=== PATIENT | female | born 1990 | race Caucasian/White ===

== ENCOUNTER 2020-11-03 08:21 | Outpatient (REF) | payer MEDICAID, SELFPAY ==
--- NOTE | ~2020-11-03 | XR_ITS ---
EXAMINATION: XR SHOULDER, RIGHT CLINICAL INFORMATION: Pain COMPARISON: None TECHNIQUE: AP external rotation, Grashey, scapular Y, and axillary views of the right shoulder. FINDINGS: No fracture. Glenohumeral and acromioclavicular alignment is anatomic with normal joint space. No abnormal soft tissue calcifications. XR/XR shoulder RT min 2V IMPRESSION: No acute osseous abnormality.
== END 2020-11-03 08:22 | disposition home or self-care (01) ==
LOC: HO.XRAY 08:21
PROVIDERS: PCP Registered Nurse; Visit Provider Registered Nurse
DX: M25.511 Pain in right shoulder (principal)
CPT/HCPCS: 73030

== ENCOUNTER 2021-01-13 17:56 | Emergency (ER) | payer MEDICAID, SELFPAY ==
[2021-01-13 19:03] VITALS: BP 136/73; PULSE 93; RESP 16; TEMP 36.8; O2SAT 100; BMI 35.3
--- NOTE | 2021-01-13 20:27 | ED_ITS ---
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 She states it was a ceramic dish. The bleeding has stopped, he reports mild pain. She does not know when her last tetanus shot was. Related Data Allergies Allergy/AdvReac Type Severity Reaction Status Date / Time No Known Allergies Allergy Verified 01/13/21 19:06 Review of Systems Review of Systems: Yes all other systems are reviewed and are negative PMFSH Past Medical History Medical History No known health problems Social History Social History Advance Directives: No Advance Directives Information Provided: Yes Patient : No Physical Exam Vital Signs: Vital Signs: Last Vital Signs Temp 98.2 F 01/13/21 19:03 Pulse 93 01/13/21 19:03 Resp 16 01/13/21 19:03 BP 136/73 01/13/21 19:03 Pulse Ox 100 01/13/21 19:03 Body Mass Index 35.3 Const: General: cooperative, healthy appearing, comfortable and no acute distress Nutritional Appearance: average body habitus Orientation/consciousness: patient oriented x3 Limitations: language barrier (Sinhala speaking, educational sign language interpreter used.) HENMT: Head: Yes normal to inspection, Yes No palpable skull fracture present, Yes normocephalic and Yes atraumatic Resp: Effort & Inspection: normal respiratory effort and able to speak in complete sentences Skin: General skin exam: no rashes or lesions noted Neuro: General: patient oriented x3 Extrem: Other: Right forearm, ulnar side, 2 cm linear laceration, superficial. Bleeding controlled, no signs of infection. Procedures Laceration Laceration 1: Site: upper extremity (ulnar side forearm) Side (If applicable): right Size (cm): 2 Description: linear Pre-repair: wound explored and irrigated extensively Skin layer closed with: other (steri strips applied)
[2021-01-13] MEDS: Diphth,Pertus(ACell),Tet Adult 0.5 ML SYRINGE IM (21:03)
== END 2021-01-13 21:14 | disposition home or self-care (01) ==
PROVIDERS: Emergency Provider Internal Medicine
DX: S51.811A Laceration without foreign body of right forearm, initial encounter (principal); W25.XXXA Contact with sharp glass, initial encounter; Y93.E9 Activity, other interior property and clothing maintenance; Y92.010 Kitchen of single-family (private) house as the place of occurrence of the external cause; Y99.9 Unspecified external cause status
CPT/HCPCS: 90471; 90715; 99283; 99284

== ENCOUNTER 2022-10-23 10:33 | Emergency (ER) | payer MEDICAID, SELFPAY ==
[2022-10-23 10:37] VITALS: BP 118/75; PULSE 100; RESP 18; TEMP 36.6; O2SAT 99; BMI 35.1
[2022-10-23 10:53] LABS: IDNOW Serial# 6674DD1D; Strep A Nucleic Acid Positive (Negative)
--- NOTE | 2022-10-23 10:55 | ED.GENADULT ---
HPI - General Adult General Chief complaint: General Medical Stated complaint: Sore throat Time Seen by Provider: 10/23/22 10:54 Source: patient Mode of arrival: ambulatory Limitations: no limitations History of Present Illness HPI narrative: 32 yo Salvadorean-speaking female presents to the ER for evaluation of sore throat & headache for the last 3 days. She states the pain is worse with eating and drinking. She denies any fever or chills. No known sick contacts. She does have 4 children at home and on them have similar symptoms. She reports her throat is red and swollen. No difficulty breathing. She is handling secretions normally MD complaint: Sore throat Onset (ago): day(s) (3) Location: mouth Radiation: neck Severity: severe Severity scale (1-10): 8 Quality: sharp Pain Consistency: constant Relieving factors: none Exacerbating factors: eating Associated symptoms: denies other symptoms Treatments prior to arrival: none Related Data Previous Rx's Medication Instructions Recorded amoxicillin 500 mg tablet 500 mg PO Q12H #20 tabs 10/23/22 ibuprofen 600 mg tablet 600 mg PO Q8H PRN fever or pain 10/23/22 #14 tabs Allergies Allergy/AdvReac Type Severity Reaction Status Date / Time No Known Allergies Allergy Verified 01/13/21 19:06 Review of Systems Review of Systems: Yes all other systems are reviewed and are negative PMFSH Past Medical History Medical History No known health problems Social History Social History Advance Directives: No Advance Directives Information Provided: No Physical Exam ED Vital Signs: Vital Signs - 24 hr 10/23/22 10:37 Temperature 98 F Pulse Rate 100 Respiratory Rate 18 Blood Pressure 118/75 Pulse Oximetry 99 Oxygen Delivery Method Room Air BMI result Body Mass Index 35.1 Appearance: Alert. Oriented X3. No acute distress. HEENT: normal external inspection, no facial swelling. oropharynx w/ moist mucus membranes, posterior pharynx w/ diffuse erythema, tonsillar swelling and exudate. uvula midline. no visible peritonsillar abscess. normal voice and handling secretions normally Neck: normal inspection, trachea midline. +submandibular LAD CVS: Normal heart rate and rhythm. Pulses normal. Respiratory: No respiratory distress. Skin: Skin warm and dry. Normal skin color. Normal skin turgor. No rashes. Extremities: Normal inspection x4, no joint swelling Neuro: Oriented X 3. Grossly normal, nonfocal Medical Decision Making Medical Decision Making [facility] Narrative: 32-year-old female presents to the ER for evaluation 3 days of sore throat and headache. She is nontoxic appearing, no evidence of peritonsillar or retropharyngeal abscess. Her throat is erythematous with tonsillar swelling and exudate. He tested positive for strep throat today. Will treat with amoxicillin. She is tolerating p.o. in triage. Stable for discharge home with oral antibiotics and pain control. Differential Diagnosis Differential Diagnoses: The differential diagnosis associated with the presentation includes Strep throat, COVID, flu, viral pharyngitis, less likely retropharyngeal or peritonsillar abscess. Less likely mononucleosis. Lab Data [facility] Lab Attestation statement: I reviewed the patient's lab results. Strep positive Labs: Lab Results 10/23/22 Range/Units 10:42 S. pyogenes GrpA KEEGAN Positive A (Negative) External Record Review External record reviewed: Prior outpatient labs Prescription Management I considered prescription management with: Antibiotic Critical Care Time Critical Care Time Critical Care Time: No Discharge Plan Discharge Clinical Impression: Acute streptococcal pharyngitis Patient Disposition: Home, Self-Care Instructions: Strep Throat (ED) Additional Instructions: You tested positive for Strep throat. Take the prescribed antibioitic as directed. Complete the entire course and do not miss any doses. Take the prescribed anti-inflammatory pain medication every 6 hours. If you develop new or worsening symptoms call 911 or come back to the ER for further evaluation. Usted homar positivo por faringitis estreptoc?cica. Painter el antibi?paul prescrito seg?n las indicaciones. Complete todo el curso y no se pierda ninguna dosis. Painter el analg?sico antiinflamatorio recetado cada 6 horas. Si desarrolla s?ntomas nuevos o que empeoran, llame al 911 o regrese a la bryan de emergencias para nell evaluaci?n adicional. Prescriptions: New amoxicillin 500 mg tablet 500 mg PO Q12H Qty: 20 0RF ibuprofen 600 mg tablet 600 mg PO Q8H PRN (Reason: fever or pain) Qty: 14 0RF Interventions: ED Discharge Assessment Last Done: 10/23/22 11:01 Discharge Date/Time: 10/23/22 11:10 Print Language: Salvadorean
== END 2022-10-23 11:10 | disposition home or self-care (01) ==
LOC: HO.ED 11:07
PROVIDERS: Emergency Provider Student in an Organized Health Care Education/Training Program
DX: J02.0 Streptococcal pharyngitis (principal); Z79.899 Other long term (current) drug therapy
CPT/HCPCS: 36415; 87651; 99282

== ENCOUNTER 2023-03-16 21:26 | Emergency (ER) | payer MEDICAID, SELFPAY ==
[2023-03-16 21:31] VITALS: BP 117/60; PULSE 103; RESP 18; TEMP 36.9; O2SAT 100; BMI 39.4
[2023-03-16 22:21] LABS: MANUAL DIFF FLAG NO
[2023-03-16 22:22] LABS: Basophils Absolute Auto 0.1 X10*3/uL (0.0-0.2); Basophils Percent Auto 0.7 % (0-2); Eosinophils Absolute Auto 0.1 X10*3/uL (0.0-0.4); Eosinophils Percent Auto 1.4 % (0-4); Hematocrit 36.8 % (37.0-47.0); Hemoglobin 11.5 g/dl (12.0-16.0); Imm Gran Abs Auto 0.03 X10*3/uL (0.00-0.03); Imm Gran Pct Auto 0.3 % (0.0-0.4); Lymphocytes Absolute Auto 2.5 X10*3/uL (1.2-4.9); Lymphocytes Percent Auto 28.9 % (20-40); Mean Corpuscular HGB Conc 31.3 g/dl (31.0-35.0); Mean Corpuscular Hemoglobin 24.6 pg (27.0-33.0); Mean Corpuscular Volume 78.6 fL (80.0-98.0); Mean Platelet Volume 9.2 fL (9.4-12.3); Monocytes Absolute Auto 0.6 X10*3/uL (0.1-1.2); Monocytes Percent Auto 7.1 % (2-11); Neutrophils Absolute Auto 5.3 x10*3/uL (2.0-8.3); Neutrophils Percent Auto 61.6 % (45-73); Platelet Count 377 X10*3/uL (160-400); Red Blood Count 4.68 X10*6/uL (4.20-5.50); Red Cell Distribution Width 13.3 % (11.0-16.0); White Blood Count 8.6 X10*3/uL (4.8-10.8)
[2023-03-16 22:48] LABS: Alanine Aminotransferase 31 U/L (0-31); Albumin Level 3.8 g/dL (3.5-5.0); Alkaline Phosphatase 95 U/L (39-117); Anion Gap 15 (12-20); Aspartate Amino Transferase 24 U/L (5-31); Bilirubin Total 0.2 mg/dL (0.0-1.0); Blood Urea Nitrogen 10 mg/dL (9-16); Calcium 9.2 mg/dL (8.4-10.2); Carbon Dioxide 21 mmol/L (22-29); Chloride 108 mmol/L (96-108); Creatinine Clr Calc Pharmacy 127.9; Estimated Glomerular Filt Rate > 60; Glucose Random 100 mg/dL (60-115); Potassium 4.1 mmol/L (3.3-5.1); Sodium 140 mmol/L (135-145); Total Protein 7.3 g/dL (6.5-8.0)
== END 2023-03-17 01:01 | disposition left against medical advice (07) ==
PROVIDERS: Emergency Provider Emergency Medicine
DX: R10.2 Pelvic and perineal pain (principal); M54.50 Low back pain, unspecified; Z79.899 Other long term (current) drug therapy
CPT/HCPCS: 36415; 80053; 85025; 99281; 99283

== ENCOUNTER 2023-09-11 19:12 | Emergency (ER) | payer MEDICAID, SELFPAY ==
--- NOTE | ~2023-09-11 | XR_ITS ---
EXAMINATION: XR HAND/WRIST, RIGHT CLINICAL INFORMATION: Pain. COMPARISON: None available. TECHNIQUE: PA, lateral, and oblique views of the right hand and wrist, together with a dedicated navicular view. FINDINGS: The bones and soft tissues are normal. No fracture. Alignment is anatomic. There is a neutral ulnar variance. Joint spaces are maintained. No erosions or soft tissue calcifications. XR/XR hand wrist RT IMPRESSION: Normal radiographs of the hand and wrist.
--- NOTE | ~2023-09-11 | XR_ITS ---
EXAMINATION: XR FOREARM, RIGHT CLINICAL INFORMATION: Pain. COMPARISON: None available. TECHNIQUE: AP and lateral views of the right forearm were obtained. FINDINGS: The bones and soft tissues are normal. No fracture. Imaged portions of the elbow and wrist are unremarkable. XR/XR forearm RT 2V IMPRESSION: Normal right forearm.
[2023-09-11 19:42] VITALS: BP 115/62; PULSE 93; RESP 16; TEMP 36.6; O2SAT 98; BMI 34.0
--- NOTE | 2023-09-11 19:43 | ED.UPPEXIN ---
HPI - Extremity Injury (Upper) General Chief Complaint: Extremity Injury, Upper Stated Complaint: right hand and wrist pain Time Seen by Provider: 09/11/23 22:42 Source: patient Mode of arrival: ambulatory Limitations: no limitations History of Present Illness HPI narrative: Patient complaining of right wrist pain lifting heavy box at work no other injuries Related Data Previous Rx's Medication Instructions Recorded amoxicillin 500 mg tablet 500 mg PO Q12H #20 tabs 10/23/22 ibuprofen 600 mg tablet 600 mg PO Q8H PRN fever or pain 10/23/22 #14 tabs ibuprofen 600 mg tablet 600 mg PO Q6H PRN fever or pain 09/11/23 #30 tabs Allergies Allergy/AdvReac Type Severity Reaction Status Date / Time No Known Allergies Allergy Verified 09/11/23 19:42 Review of Systems Review of Systems: Yes all other systems are reviewed and are negative [facility] Past Medical History Medical History No known health problems Social History Social History Smoked in Last 30 Days: No Use of substances other than those prescribed or required for medical reasons: No Advance Directives: No Advance Directives Information Provided: No Patient : No Physical Exam Vital Signs: Vital Signs: Last Vital Signs Temp 98.1 F 09/11/23 23:54 Pulse 82 09/11/23 23:54 Resp 19 09/11/23 23:54 BP 106/58 L 09/11/23 23:54 Pulse Ox 98 09/11/23 23:54 O2 Del Method Room Air 09/11/23 23:54 BMI result Body Mass Index 34.0 Extrem: Hand/finger images: 1. Soft tissue tenderness with good range of movement painful wrist extension Course Course Course Narrative: RME:?here w/ right wrist pain after lifting up a heavy box while at work earlier today. Did not take anything for pain prior to arrival. This has never happened to her before. Denies numbness, tingling right upper extremity. Denies trauma to the wrist. Denies history of carpal tunnel syndrome. PE: 2+ radial pulses. Negative Tinel and Phalen. Tender to palpation over the distal radius and ulna without palpable deformity. No swelling. xrs ordered. Full HPI, ROS and PE to be performed by the primary ED provider. Medications Administered Discontinued Medications Generic Name Dose Route Start Last Admin Trade Name Freq PRN Reason Stop Dose Admin Ibuprofen 600 mg 09/11/23 23:20 09/11/23 23:49 Ibuprofen 600 Mg Tablet PO 09/11/23 23:21 600 mg ONCE ONE Administration Medical Decision Making Differential Diagnosis Differential Diagnoses: The differential diagnosis associated with the presentation includes Wrist sprain/fracture Independent Interpretation I performed an independent interpretation of an: Plain X-Ray Radiology Impression Discussion of test interpretation with radiology: I have reviewed the radiologist's reading. Discharge Plan Discharge Clinical Impression: Sprain and strain of wrist Patient Disposition: Home, Self-Care Instructions: Wrist Sprain (ED) Additional Instructions: Splint for support Ibuprofen for pain Follow-up with PCP if any concerns Prescriptions: New ibuprofen 600 mg tablet 600 mg PO Q6H PRN (Reason: fever or pain) Qty: 30 0RF No Action amoxicillin 500 mg tablet 500 mg PO Q12H Qty: 20 0RF ibuprofen 600 mg tablet 600 mg PO Q8H PRN (Reason: fever or pain) Qty: 14 0RF Stand Alone Forms: Work/School Release Interventions: ED Discharge Assessment Last Done: 09/11/23 23:55 Discharge Date/Time: 09/11/23 23:56
--- NOTE | 2023-09-11 23:39 | PC.NURSE ---
pt from home reporting being at work over the morning, and reports lifting cheese when the palate landed on her right wrist. pt reports pain with movement. pt cms in tact, pt has full range of motion.
[2023-09-11] MEDS: Ibuprofen 600 MG TABLET PO (23:49)
[2023-09-11 23:54] VITALS: BP 106/58; PULSE 82; RESP 19; TEMP 36.7; O2SAT 98
== END 2023-09-11 23:56 | disposition home or self-care (01) ==
PROVIDERS: Emergency Provider Internal Medicine
DX: S63.501A Unspecified sprain of right wrist, initial encounter (principal); S66.811A Strain of other specified muscles, fascia and tendons at wrist and hand level, right hand, initial encounter; X50.0XXA Overexertion from strenuous movement or load, initial encounter; Y93.89 Activity, other specified; Y92.9 Unspecified place or not applicable; Y99.0 Civilian activity done for income or pay; M25.531 Pain in right wrist
CPT/HCPCS: 73090; 73110; 73130; 99283; 99284

== ENCOUNTER 2024-01-14 23:37 | Emergency (ER) | payer MEDICAID, SELFPAY ==
[2024-01-14 23:58] VITALS: BP 101/69; PULSE 85; RESP 18; TEMP 36.6; O2SAT 99; BMI 34.7
[2024-01-15 00:15] LABS: MANUAL DIFF FLAG NO
[2024-01-15 00:16] LABS: Basophils Absolute Auto 0.1 X10*3/uL (0.0-0.2); Basophils Percent Auto 0.7 % (0-2); Eosinophils Absolute Auto 0.1 X10*3/uL (0.0-0.4); Eosinophils Percent Auto 1.5 % (0-4); Hematocrit 39.8 % (37.0-47.0); Hemoglobin 12.6 g/dl (12.0-16.0); Imm Gran Abs Auto 0.02 X10*3/uL (0.00-0.03); Imm Gran Pct Auto 0.3 % (0.0-0.4); Lymphocytes Absolute Auto 2.2 X10*3/uL (1.2-4.9); Lymphocytes Percent Auto 32.7 % (20-40); Mean Corpuscular HGB Conc 31.7 g/dl (31.0-35.0); Mean Corpuscular Hemoglobin 24.9 pg (27.0-33.0); Mean Corpuscular Volume 78.5 fL (80.0-98.0); Mean Platelet Volume 9.4 fL (9.4-12.3); Monocytes Absolute Auto 0.4 X10*3/uL (0.1-1.2); Monocytes Percent Auto 6.1 % (2-11); Neutrophils Percent Auto 58.7 % (45-73); Platelet Count 376 X10*3/uL (160-400); Red Blood Count 5.07 X10*6/uL (4.20-5.50); White Blood Count 6.8 X10*3/uL (4.8-10.8)
[2024-01-15 00:19] LABS: Appearance Urine Clear; Color Urine Dark Yellow; Glucose Urine UA Negative (Negative); Leukocyte Esterase Urine Trace (Negative); Nitrite Urine Negative (Negative); PH 5.5 (5.0-9.0); Specific Gravity - Urine >= 1.030 (1.005-1.025); UMIC TRIGGER UACC YES; Urine Blood Small (1+) (Negative); Urine Ketones Trace mg/dL (Negative); Urine Protein Trace mg/dL (Neg-Trace)
[2024-01-15 00:20] LABS: UPreg QC Valid YES; Urine Pregnancy NEGATIVE (NEGATIVE)
[2024-01-15 00:24] LABS: Bacteria Urine None Seen (None Seen); Hyaline Casts Urine 0-2 /LPF (0-2); WBC Urine 0-5 /HPF (0-5)
[2024-01-15 00:38] LABS: Alanine Aminotransferase 26 U/L (0-31); Albumin Level 4.2 g/dL (3.5-5.0); Alkaline Phosphatase 93 U/L (39-117); Anion Gap 13 (12-20); Aspartate Amino Transferase 20 U/L (5-31); Bilirubin Direct 0.1 mg/dL (0.0-0.5); Bilirubin Total 0.3 mg/dL (0.0-1.0); Blood Urea Nitrogen 14 mg/dL (9-16); Calcium 8.8 mg/dL (8.4-10.2); Carbon Dioxide 22 mmol/L (22-29); Chloride 109 mmol/L (96-108); Glucose Random 85 mg/dL (60-115); Lipase 22 U/L (8-78); Potassium 3.7 mmol/L (3.3-5.1); Sodium 140 mmol/L (135-145)
[2024-01-15 00:51] LABS: Creatinine Clr Calc Pharmacy 122.7; Estimated Glomerular Filt Rate > 60
[2024-01-15 05:02] VITALS: BP 105/63; PULSE 75; RESP 14; TEMP 36.8; O2SAT 100
--- NOTE | 2024-01-15 07:42 | ED.ABDPAIN ---
HPI - Abdominal Pain General Chief Complaint: Abdominal Pain Stated Complaint: stomach pain Time Seen by Provider: 01/15/24 07:22 Source: patient Mode of arrival: ambulatory Limitations: no limitations History of Present Illness ED Provider: Dr. Kurtz HPI narrative: Patient with 4 days of epigastric pain with some nausea and some vomiting. States that she has been using a lot of motrin secondary to her headaches MD elicited complaint: abdominal pain Pertinent past history: none Onset (ago): day(s) Pain Consistency: intermittent Location: epigastric Severity: mild Quality: burning Associated symptoms: nausea and vomiting Related Data Previous Rx's ?Medication ?Instructions ?Recorded amoxicillin 500 mg tablet 500 mg PO Q12H #20 tabs 10/23/22 ibuprofen 600 mg tablet 600 mg PO Q8H PRN fever or pain 10/23/22 #14 tabs ibuprofen 600 mg tablet 600 mg PO Q6H PRN fever or pain 09/11/23 #30 tabs ondansetron 4 mg disintegrating 4 mg PO Q8H PRN nausea and 01/15/24 tablet vomiting 5 days #15 tabs pantoprazole 20 mg tablet,delayed 20 mg PO DAILY #30 tabs 01/15/24 release (Protonix) Allergies Allergy/AdvReac Type Severity Reaction Status Date / Time No Known Allergies Allergy Verified 01/15/24 00:02 Review of Systems Review of Systems Yes all other systems are reviewed and are negative Denies Sensory deficit (Neuro) PMFSH Past Medical History Medical History No known health problems Social History Social History Smoked in Last 30 Days: No Use of substances other than those prescribed or required for medical reasons: No Advance Directives: No Advance Directives Information Provided: No Do you have a plan to hurt others: No Plan Patient : No Physical Exam ED Vital Signs: Vital Signs - 24 hr 01/14/24 23:58 01/15/24 05:02 01/15/24 08:10 Temperature 97.9 F 98.2 F 97 F Pulse Rate 85 75 77 Respiratory Rate 18 14 16 Blood Pressure 101/69 105/63 104/68 Pulse Oximetry 99 100 100 Oxygen Delivery Method Room Air Room Air Room Air BMI result Body Mass Index 34.7 Const General: healthy appearing Nutritional Appearance: average body habitus Orientation/consciousness: oriented to person and patient oriented x3 Limitations: no limitations HENMT Head: Yes normal to inspection Ears: external ears normal General nose exam: Normal external nose present Mouth: Normal oral and palatal mucosa present and oropharynx normal Throat: Yes posterior oropharynx normal Eyes General: appearance normal, both eyes and all related structures Neck Neck: Yes normal visual inspection Chest Chest palpation & inspection: normal inspection of the chest Resp Auscultation: clear to auscultation bilaterally Cardio Jugular venous distension: no JVD Rate: regular rate Rhythm: regular rhythm Heart sounds: S1 normal heart sound present and S2 normal heart sound present GI Other: mild epigasrtic pain to palpation Inspection: Yes normal to inspection Palpation (GI): Soft to palpation Auscultation: normal bowel sounds General: Yes no CVA tenderness Back/Spine/Pelvis Back: no CVA tenderness Skin General skin exam: no rashes or lesions noted Neuro General: oriented to person and patient oriented x3 Cranial nerves: Yes CN's II-XII intact bilaterally Motor exam (neuro): 5/5 motor strength present throughout Sensory Exam: No Sensory deficit (Neuro) Extrem General: Yes normal to inspection Psych Appearance: grossly normal Course Reevaluation(s) Reevaluation #1: Patient with likely gastritis secondary to motrin use, will have patient cut back on NSAIDS and start protonix and zofran Time: 08:14 Medical Decision Making Differential Diagnosis Differential Diagnoses: The differential diagnosis associated with the presentation includes (peptic ulcer, gastritis, hepatitis, pancreatitis were all considered) Admission/Observation Consideration of admission/observation: Escalation of care including admission/observation considered (upon arrival patient considered for admission) Lab Data 01/15/24 00:11 01/15/24 00:11 Labs: Lab Results 01/15/24 Range/Units 00:11 WBC 6.8 (4.8-10.8) X10*3/uL RBC 5.07 (4.20-5.50) X10*6/uL Hgb 12.6 (12.0-16.0) g/dl Hct 39.8 (37.0-47.0) % MCV 78.5 L (80.0-98.0) fL MCH 24.9 L (27.0-33.0) pg MCHC 31.7 (31.0-35.0) g/dl RDW 15.0 (11.0-16.0) % Plt Count 376 (160-400) X10*3/uL MPV 9.4 (9.4-12.3) fL Immature Gran % (Auto) 0.3 (0.0-0.4) % Neut % (Auto) 58.7 (45-73) % Lymph % (Auto) 32.7 (20-40) % [place] % (Auto) 6.1 (2-11) % Eos % (Auto) 1.5 (0-4) % Baso % (Auto) 0.7 (0-2) % Lymph # (Auto) 2.2 (1.2-4.9) X10*3/uL [place] # (Auto) 0.4 (0.1-1.2) X10*3/uL Eos # (Auto) 0.1 (0.0-0.4) X10*3/uL Baso # (Auto) 0.1 (0.0-0.2) X10*3/uL Abs Immat Gran (auto) 0.02 (0.00-0.03) X10*3/uL Absolute Neuts (auto) 4.0 (2.0-8.3) x10*3/uL Absolute Nucleated RBC 0.000 (0.0-0.012) X10*3/uL Nucleated RBC % (auto) 0.0 (0.0-0.2) /100WBC Sodium 140 (135-145) mmol/L Potassium 3.7 (3.3-5.1) mmol/L Chloride 109 H (96-108) mmol/L Carbon Dioxide 22 (22-29) mmol/L Anion Gap 13 (12-20) BUN 14 (9-16) mg/dL Creatinine 0.67 (0.5-1.4) mg/dL Estim Creat Clear Calc 122.7 Estimated GFR > 60 Random Glucose 85 (60-115) mg/dL Calcium 8.8 (8.4-10.2) mg/dL Total Bilirubin 0.3 (0.0-1.0) mg/dL Direct Bilirubin 0.1 (0.0-0.5) mg/dL AST 20 (5-31) U/L ALT 26 (0-31) U/L Alkaline Phosphatase 93 (39-117) U/L Total Protein 8.0 (6.5-8.0) g/dL Albumin 4.2 (3.5-5.0) g/dL Lipase 22 (8-78) U/L Urine Color Dark Yellow Urine Appearance Clear Urine pH 5.5 (5.0-9.0) Ur Specific [place] >= 1.030 H (1.005-1.025) Urine Protein Trace (Neg-Trace) mg/dL Urine Glucose (UA) Negative (Negative) mg/dL Urine Ketones Trace (Negative) mg/dL Urine Blood Small (1+) H (Negative) Urine Nitrite Negative (Negative) Ur Leukocyte Esterase Trace H (Negative) Urine RBC 6-10 H (0-2) /HPF Urine WBC 0-5 (0-5) /HPF Ur Squamous Epith Cells 3-5 (0-2) /HPF Urine Bacteria None Seen (None Seen) Hyaline Casts 0-2 (0-2) /LPF Urine Test NEGATIVE (NEGATIVE) Tests considered The following testing was considered but not selected: US of gallbladder and pancreas considered but lfts and lipase normal Discharge Plan Discharge Clinical Impression: Gastritis Patient Disposition: Home, Self-Care Instructions: Gastritis (ED) Prescriptions: New pantoprazole [Protonix] 20 mg tablet,delayed release (DR/EC) 20 mg PO DAILY Qty: 30 0RF ondansetron 4 mg tablet,disintegrating 4 mg PO Q8H PRN (Reason: nausea and vomiting) 5 Days Qty: 15 0RF No Action amoxicillin 500 mg tablet 500 mg PO Q12H Qty: 20 0RF ibuprofen 600 mg tablet 600 mg PO Q8H PRN (Reason: fever or pain) Qty: 14 0RF ibuprofen 600 mg tablet 600 mg PO Q6H PRN (Reason: fever or pain) Qty: 30 0RF Referrals: Physician,Unknown J [Primary Care Provider] - 5 days Print Language: Hungarian
[2024-01-15 08:10] VITALS: BP 104/68; PULSE 77; RESP 16; TEMP 36.1; O2SAT 100
[2024-01-15] MEDS: Ondansetron ODT 4 MG TAB.RAPDIS TRANSLINGU (08:18)
[2024-01-15] MEDS: Famotidine 20 MG TABLET PO (08:18)
== END 2024-01-15 08:29 | disposition home or self-care (01) ==
PROVIDERS: Emergency Provider Emergency Medicine
DX: K29.70 Gastritis, unspecified, without bleeding (principal); R51.9 Headache, unspecified; R11.2 Nausea with vomiting, unspecified
CPT/HCPCS: 36415; 80048; 80076; 81001; 81025; 83690; 85025; 99283; 99284